=== PATIENT | male | born 1955 | race American Indian/Alaskan Native ===

== ENCOUNTER 2021-06-22 07:14 | Day surgery (SDC) | payer OTHER ==
[2021-06-19 11:47] LABS: Potassium 4.4 mmol/L (3.5-5.1)
[2021-06-19 11:51] LABS: Basophils % 0.5 % (0-1.3); Hematocrit 39.1 % (39.6-49.0); Lymphocytes % 34.9 % (15.3-44.8); MPV 9.3 fL (7.6-11.3); RBC Red Blood Cell Count 4.59 M/uL (4.33-5.43)
[2021-06-22] MEDS ORDERED: Ringers Lactate 1,000 ML IV ONE (07:55)
[2021-06-22] MEDS ORDERED: CEFAZOLIN 1GM (PREMIX IV) 1 GM/50 ML BAG IV ONE (08:00)
[2021-06-22] MEDS ORDERED: LIDOCAINE 1% MPF 5 ML VIAL ONE (08:46)
[2021-06-22] MEDS ORDERED: BUPIVACAINE 0.5% PF 10 ML VIAL ONE (08:46)
[2021-06-22] MEDS ORDERED: ONDANSETRON 4 MG/2 ML VIAL ONE (08:46)
[2021-06-22] MEDS ORDERED: NS 0.9% VIAL 0 ML ONE (08:46)
[2021-06-22] MEDS ORDERED: FENTANYL CITR 250 MCG/5 ML ONE (08:46)
[2021-06-22] MEDS ORDERED: MIDAZOLAM HCL 2 MG/2 ML INJ ONE (08:46)
[2021-06-22] MEDS ORDERED: propofoL 200 MG/20 ML VIAL IV ONE (08:46)
[2021-06-22] MEDS ORDERED: dexAMETHasone 10 MG/ML VIAL ONE (08:46)
[2021-06-22] MEDS ORDERED: ROCURONIUM 50 MG/5 ML VIAL IV ONE (08:47)
[2021-06-22] MEDS ORDERED: LIDOCAINE JELLY 2%- 5 ML TUBE ONE (09:07)
--- NOTE | 2021-06-22 09:16 | P.BOP ---
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
[2021-06-22] MEDS ORDERED: DIPHENHYDRAMINE 50 MG/ML VIAL ONE (09:22)
[2021-06-22] MEDS ORDERED: KETOROLAC 30 MG/ML INJ ONE (09:23)
[2021-06-22] MEDS ORDERED: CEFAZOLIN SODIUM 1 GM/VIAL ONE (09:24)
[2021-06-22] MEDS ORDERED: GLYCOPYRROLATE 0.2 MG/ML SYR ONE (09:34)
[2021-06-22] MEDS ORDERED: NEOSTIGMINE 1 MG/ML -5 ML ONE (09:37)
--- NOTE | 2021-06-22 09:50 | OP ---
Date of Procedure: 06/22/2021 Surgeon: Ze De Paz MD Facing Cutting Machine Operator: Avani Rondon. Preoperative Diagnosis: Incisional tender umbilical hernia. Postoperative Diagnosis: Incisional tender umbilical hernia. Procedure: Open repair of incisional tender umbilical hernia. Anesthesia: General plus local. Estimated Blood Loss: Less than 10 mL. Indication: This is the case of a 66-year-old patient, who comes to us with incisional umbilical her antonella. The patient has history of bowel resection in the past. Benefits, alternatives, and risks of r epair were fully explained, which include, but not limited to infection, bleeding, damage to adjacent structures, anesthesia complication, recurrence, NE and even . He also understands this may no t relieve any symptoms. He might need more than one surgical intervention. He understood, signed a consent. He also understands that we discussed a way how to diminish the chance of recurrence in the future. Procedure In Detail: The patient was brought to the operating room, placed in supine position. Anes thesia was done without complication. A time-out was called. Abdomen was prepped and draped in usua l sterile fashion. An incision was made over the previous incision in the inferior part and incision was carried down to fascia. We noticed and identified the umbilical sac, carefully opened the umbil ical sac, retracted some incarcerated omentum and placed in that area. Adhesions were removed from t hat area and the hernia sac was removed and then we cleaned the fascial edges and proceeded to close the defect. Before that, I put my finger through the umbilical area. The rest of the incision seeme d to be holding together, so that we proceeded to close this part of the incision with #1 Prolene in [id number] fashion multiple times. Area was irrigated. Subcutaneous tissue was closed with 3-0 chromic and skin with 3-0 chromic and Steri-Strips on top. Sponge count and instrument counts corre ct. The patient tolerated the procedure well. The patient was sent to recovery in stable condition. PERFECTO/ANGUS Voice ID: [id number] Report ID: [id number]
--- NOTE | 2021-06-22 09:50 | DS ---
Diagnosis: Incisional tender umbilical hernia. Procedure: Open repair of incisional tender umbilical hernia. Disposition: Home. Activity: As tolerated. No heavy lifting. Plan: Follow up in my office in 1 week. Call for appointment at [phone]. Medications: Include Tylenol No.3 q.4 hours p.r.n. pain, Bactrim DS p.o. b.i.d. Leave dressings int act. HM/MODL Voice ID: [id number] Report ID: [id number]
[2021-06-22] MEDS ORDERED: CODEINE 30MG/APAP 300MG TAB ONE (10:48)
[2021-06-22 11:10] VITALS: BP 126/64; TEMP 96.9; O2SAT 97
== END 2021-06-22 11:00 | disposition home or self-care (01) ==
LOC: OR 07:14
PROVIDERS: ATTEND Surgery
PROC: 0WQF0ZZ Repair Abdominal Wall, Open Approach (ICD-10-PCS; principal; 2021-06-22 08:30)
DX: K42.9 Umbilical hernia without obstruction or gangrene (principal); Z20.822 Contact with and (suspected) exposure to COVID-19
CPT/HCPCS: 85025; 80048; 36415; 88302; 49585; U0003; J2704; J1200; J2250; J3010; J2710; J7120; J0690 ×2; J2405; J1100

== ENCOUNTER 2021-06-24 10:37 | Emergency (ER) | payer OTHER ==
[2021-06-24 12:07] LABS: Urine Blood Negative (Negative); Urine Glucose Trace (Negative); Urine Protein Negative (Negative); Urine Specific Gravity 1.015 (1.005-1.030); Urine pH 5.5 (5.0-7.0)
[2021-06-24 12:09] LABS: Urine Appearance CLEAR (Clear); Urine Bilirubin NEGATIVE (Negative); Urine Blood NEGATIVE (Negative); Urine Color ORANGE (Yellow); Urine Glucose NEGATIVE (Negative); Urine Protein NEGATIVE (Negative); Urine pH 5.5 (5.0-7.0)
[2021-06-24 12:11] LABS: Urine Microscopic Reflex NO UMIC
--- NOTE | 2021-06-24 13:20 | ER ---
Nurse's Notes [facility] Name: Chuckie Caruso Age: 66 yrs Sex: Male : 1955 Arrival Date: 06/24/2021 Time: 10:41 Bed 20 Private MD: Diagnosis: Urinary retention status post general anesthesia;UTI/ Urinary tract infection, site not specified Presentation: 06/24 10:53 Chief complaint: Patient states: i had a hernia surgery Tuesday and they put barros tw2 catheter in while they were operating. it was out whenever i woke up from the surgery. i called the doctors office and they said it was common. last night the pain is terrible. i dont know if i caught a UTI or what but I am not urinating at all now. the urologist has an answering service. Coronavirus screen: At this time, the client does not indicate any symptoms associated with coronavirus-19. Ebola Screen: Patient denies travel to an Ebola-affected area in the 21 days before illness onset. Initial Sepsis Screen: Does the patient meet any 2 criteria? HR > 90 bpm. No. Patient's initial sepsis screen is negative. Does the patient have a suspected source of infection? No. Patient's initial sepsis screen is negative. Risk Assessment: Do you want to hurt yourself or someone else? Patient reports no desire to harm self or others. Onset of symptoms was June 24, 2021. 10:53 Method Of Arrival: Ambulatory tw2 10:53 Acuity: STEPHAN 3 tw2 10:53 Note pt unable to sit in triage chair, states "its just too uncomfortable to sit. if tw2 you dont mind i will just stand". Triage Assessment: 10:56 General: Appears uncomfortable, Behavior is cooperative, appropriate for age. Pain: tw2 Complains of pain in urinary. : Reports inability to void, pain. 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 - Social history:: Smoking status: Reported history of juuling and/or vaping. Screenin:07 Abuse screen: Denies threats or abuse. Nutritional screening: No deficits noted. tw2 Tuberculosis screening: No symptoms or risk factors identified. Fall Risk None identified. Assessment: 10:57 Reassessment: pt wishing to try and use restroom at this time. pt given urinal. tw2 11:05 Reassessment: Patient and/or family updated on plan of care and expected duration. Pain es2 level reassessed. Patient is alert, oriented x 3, equal unlabored respirations, skin warm/dry/pink. Patient states he had hernia surgery yesterday. urine was a trickle, was worse yesterday and today he has no urine output. He took AZO late last night and early this morning. Now reports feeling pain in lower back. General: Appears distressed, uncomfortable, well developed, well nourished, Behavior is calm, cooperative, appropriate for age, restless. Pain: Complains of pain in back, abdomen and pelvis lower abd, pelvic pain that radiates to lower back. Pain currently is 10 out of 10 on a pain scale. Neuro: Level of Consciousness is awake, alert, obeys commands, Oriented to person, place, time, situation, Appropriate for age Speech is normal, Facial symmetry appears normal. Cardiovascular: Capillary refill < 3 seconds Patient's skin is warm and dry. Respiratory: Airway is patent Respiratory effort is even, unlabored, Respiratory pattern is regular, symmetrical. GI: No signs and/or symptoms were reported involving the gastrointestinal system. : Reports inability to void, pain. EENT: No signs and/or symptoms were reported regarding the EENT system. Derm: No signs and/or symptoms reported regarding the dermatologic system. 12:00 Reassessment: Bladder scan read 760. Barros bag drained 1400 after insertion. es2 13:15 Reassessment: approximately 600ml in barros bag when d/c'd. es2 Vital Signs: 10:53 BP 158 / 95; Pulse 90; Resp 17; Temp 98.5(TE); Pulse Ox 98% on R/A; Weight 88.9 kg (R); tw2 Height 5 ft. 7 in. (170.18 cm); Pain 10/10; 11:11 BP 167 / 89; Pulse 89; Resp 20; Pulse Ox 98% on R/A; es2 12:20 BP 141 / 83; Pulse 85; Resp 20; Pulse Ox 95% on R/A; es2 10:53 Body Mass Index 30.70 (88.90 kg, 170.18 cm) tw2 ED Course: 10:41 Patient arrived in ED. jm9 10:55 Triage completed. tw2 10:56 Arm band placed on. tw2 10:57 Bed in low position. Call light in reach. tw2 10:58 China Pandey, RN is Primary Nurse. es2 10:59 Roger Killian MD is Attending Physician. kdr 11:11 No provider procedures requiring assistance completed. es2 12:00 Barros cath inserted, using sterile technique, 16 Fr., by ED staff, balloon inflated, to es2 gravity drainage, urine specimen collected. 13:15 Barros cath removed intact, balloon deflated. Patient did not have IV access during this es2 emergency room visit. Administered Medications: 13:19 Drug: Cipro (ciprofloxacin) 500 mg Route: PO; es2 13:19 Follow up: Response: No adverse reaction es2 Outcome: 13:19 Discharge ordered by . kdr 13:29 Patient left the ED. es2 Signatures: Roger Killian MD MD kdr Soha Marshall RN RN 2 China Pandey, MAHNAZ RN 2 Chastity Palma 9 Corrections: (The following items were deleted from the chart) 10:56 10:55 Social history: Smoking status: Patient denies any tobacco usage or history of. tw2 tw2
--- NOTE | 2021-06-24 13:20 | EDPHYS ---
Physician Documentation [facility] Name: Chuckie Caruso Age: 66 yrs Sex: Male : 1955 Arrival Date: 06/24/2021 Time: 10:41 Bed 20 Private MD: ED Physician Roger Killian HPI: 06/24 13:22 This 66 yrs old Other Male presents to ER via Ambulatory with complaints of Urinary kdr Problem. 13:22 The patient presents with urinary symptoms, retention. Onset: The symptoms/episode kdr began/occurred last night. Modifying factors: The symptoms are alleviated by nothing, the symptoms are aggravated by movement, pressure. Associated signs and symptoms: The patient has no apparent associated signs or symptoms. Severity of symptoms: At their worst the symptoms were incapacitating. The patient has not experienced similar symptoms in the past. The patient has been recently seen by a physician: Patient had an umbilical hernia repair on Tuesday. Starting last evening, he began to have difficulty urinating and was not been able to urinate since then.. 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 - Social history:: Smoking status: Reported history of juuling and/or vaping. ROS: 13:22 Constitutional: Negative for fever, chills, and weight loss, Eyes: Negative for injury, kdr pain, redness, and discharge, Neck: Negative for injury, pain, and swelling, Cardiovascular: Negative for chest pain, palpitations, and edema, Respiratory: Negative for shortness of breath, cough, wheezing, and pleuritic chest pain, Back: Negative for injury and pain, MS/Extremity: Negative for injury and deformity, Skin: Negative for injury, rash, and discoloration, Neuro: Negative for headache, weakness, numbness, tingling, and seizure activity. Psych: Negative for depression, anxiety, suicide ideation, homicidal ideation, and hallucinations, Allergy/Immunology: Negative for hives, rash, and allergies, Endocrine: Negative for neck swelling, polydipsia, polyuria, polyphagia, and marked weight changes. 13:22 Abdomen/GI: Positive for abdominal pain, Negative for nausea, vomiting, and diarrhea. 13:22 : Positive for urinary symptoms, Urinary retention. Exam: 13:22 Constitutional: This is a well developed, well nourished patient who is awake, alert, kdr and in no acute distress. Head/Face: Normocephalic, atraumatic. Eyes: Pupils equal round and reactive to light, extra-ocular motions intact. Lids and lashes normal. Conjunctiva and sclera are non-icteric and not injected. Cornea within normal limits. Periorbital areas with no swelling, redness, or edema. Neck: Trachea midline, no thyromegaly or masses palpated, and no cervical lymphadenopathy. Supple, full range of motion without nuchal rigidity, or vertebral point tenderness. No Meningismus. Chest/axilla: Normal chest wall appearance and motion. Nontender with no deformity. No lesions are appreciated. Cardiovascular: Regular rate and rhythm with a normal S1 and S2. No gallops, murmurs, or rubs. Normal PMI, no JVD. No pulse deficits. Respiratory: Lungs have equal breath sounds bilaterally, clear to auscultation and percussion. No rales, rhonchi or wheezes noted. No increased work of breathing, no retractions or nasal flaring. Abdomen/GI: Soft, non-tender, with normal bowel sounds. No distension or tympany. No guarding or rebound. No evidence of tenderness throughout. Back: No spinal tenderness. No costovertebral tenderness. Full range of motion. Skin: Warm, dry with normal turgor. Normal color with no rashes, no lesions, and no evidence of cellulitis. MS/ Extremity: Pulses equal, no cyanosis. Neurovascular intact. Full, normal range of motion. Neuro: Awake and alert, GCS 15, oriented to person, place, time, and situation. Cranial nerves II-XII grossly intact. Motor strength 5/5 in all extremities. Sensory grossly intact. Cerebellar exam normal. Normal gait. Psych: Awake, alert, with orientation to person, place and time. Behavior, mood, and affect are within normal limits. Vital Signs: 10:53 BP 158 / 95; Pulse 90; Resp 17; Temp 98.5(TE); Pulse Ox 98% on R/A; Weight 88.9 kg (R); tw2 Height 5 ft. 7 in. (170.18 cm); Pain 10/10; 11:11 BP 167 / 89; Pulse 89; Resp 20; Pulse Ox 98% on R/A; es2 12:20 BP 141 / 83; Pulse 85; Resp 20; Pulse Ox 95% on R/A; es2 10:53 Body Mass Index 30.70 (88.90 kg, 170.18 cm) tw2 MDM: 13:19 Patient medically screened. kdr 13:20 Data reviewed: vital signs, nurses notes. Counseling: I had a detailed discussion with kdr the patient and/or guardian regarding: the historical points, exam findings, and any diagnostic results supporting the discharge/admit diagnosis, lab results, the need for outpatient follow up. Special discussion: I discussed with the patient/guardian in detail that at this point there is no indication for admission to the hospital. It is understood, however, that if the symptoms persist or worsen the patient needs to return immediately for re-evaluation. ED course: Discussed with patient the option to either leave the Orellana in and return in a few days to have it taken out or take the Orellana out at this time and see if he is able to void later today. Patient opted to attempt to resume normal voiding and to take the Orellana out at this time. He was happy with the care provided and the plan for discharge and follow-up. He indicated that he would come back should he not be able to void.. 13:22 ED course: Patient had significant relief and complete relief with insertion of the kdr Orellana. The initially drained approximately 1400 cc. At the time of my reexamination, he had an additional 500 cc out. The dip urine showed possible infection.. 06/24 11:24 Order name: Urinalysis; Complete Time: 12:59 kdr 06/24 12:07 Order name: Urine Dipstick-Ancillary; Complete Time: 12:59 EDWA 06/24 11:30 Order name: Bladder Scanner; Complete Time: 11:52 kdr 06/24 11:30 Order name: Orellana; Complete Time: 11:52 [facility] Administered Medications: 13:19 Drug: Cipro (ciprofloxacin) 500 mg Route: PO; es2 13:19 Follow up: Response: No adverse reaction es2 Disposition Summary: 06/24/21 13:19 Discharge Ordered Location: Home kdr Problem: new kdr Symptoms: have improved kdr Condition: Stable kdr Diagnosis - Urinary retention status post general anesthesia kdr - UTI/ Urinary tract infection, site not specified kdr Followup: kdr - With: Private Physician - When: 2 - 3 days - Reason: If symptoms return, Further diagnostic work-up, Recheck today's complaints, Continuance of care, Re-evaluation by your physician Discharge Instructions: - Discharge Summary Sheet kdr - Urinary Tract Infection, Adult, [id number] kdr - Acute Urinary Retention, Male, [id number] kdr Forms: - Medication Reconciliation Form kdr - Thank You Letter kdr - Antibiotic Education kdr Prescriptions: - Cipro 500 mg Oral Tablet - take 1 tablet by ORAL route every 12 hours for 7 days; 14 tablet; Refills: 0, kdr Product Selection Permitted Signatures: Dispatcher [employer] EDMS Roger Killian MD MD kdr Soha Marshall RN RN tw2 China Pandey RN RN es2 Corrections: (The following items were deleted from the chart) 10:56 10:55 Social history: Smoking status: Patient denies any tobacco usage or history of. tw2 tw2
[2021-06-24 13:34] VITALS: TEMP 98.5
[2021-06-24 13:36] VITALS: BP 141/83; O2SAT 95
[2021-06-24] MEDS ORDERED: CIPROFLOXACIN HCL 500 MG TAB ONE (13:42)
== END 2021-06-24 13:29 | disposition home or self-care (01) ==
LOC: ER 10:37
DX: N39.0 Urinary tract infection, site not specified (principal); N40.0 Benign prostatic hyperplasia without lower urinary tract symptoms
CPT/HCPCS: 51702; 81003; 99284

== ENCOUNTER 2021-06-25 07:14 | Emergency (ER) | payer OTHER ==
[2021-06-25 07:59] LABS: Urine Blood Negative (Negative); Urine Glucose Trace (Negative); Urine Protein Negative (Negative); Urine Specific Gravity 1.025 (1.005-1.030); Urine pH 5.5 (5.0-7.0)
--- NOTE | 2021-06-25 08:40 | ER ---
Nurse's Notes [facility] Name: Chuckie Caruso Age: 66 yrs Sex: Male : 1955 Arrival Date: 06/25/2021 Time: 07:16 Bed 13 Private MD: Rufus Izaguirre V Diagnosis: Retention of urine, unspecified;UTI/ Urinary tract infection, site not specified Presentation: 06/25 07:23 Chief complaint: Patient states: Had Hernia surgery Tuesday. Was seen here for urinary ch5 retention yesterday. Barros placed and drained yesterday but barros DCed. Coronavirus screen: Vaccine status: Patient reports receiving the 2nd dose of the covid vaccine. Ebola Screen: Patient negative for fever greater than or equal to 101.5 degrees Fahrenheit, and additional compatible Ebola Virus Disease symptoms Patient denies exposure to infectious person. Patient denies travel to an Ebola-affected area in the 21 days before illness onset. Initial Sepsis Screen: Does the patient meet any 2 criteria? No. Patient's initial sepsis screen is negative. Does the patient have a suspected source of infection? No. Patient's initial sepsis screen is negative. Risk Assessment: Do you want to hurt yourself or someone else? Patient reports no desire to harm self or others. 07:23 Method Of Arrival: Ambulatory 5 07:23 Acuity: STEPHAN 2 ch5 - Immunization history:: Client reports receiving the 2nd dose of the Covid vaccine. - Social history:: Smoking status: Patient denies any tobacco usage or history of. - Family history:: not pertinent. - Hospitalizations: : No recent hospitalization is reported. Screenin:26 Abuse screen: Denies threats or abuse. Denies injuries from another. Nutritional ch5 screening: No deficits noted. Tuberculosis screening: No symptoms or risk factors identified. Fall Risk None identified. Assessment: 07:49 Pain: Complains of pain in pelvis Pain does not radiate. Pain currently is 8 out of 10 aj2 on a pain scale. Quality of pain is described as pressure, Pain began 1 day ago. Is continuous, Alleviated by Barros Catheter Aggravated by drinking. Vital Signs: 07:23 BP 144 / 86; Pulse 84; Resp 18; Temp 98.9; Pulse Ox 99% ; Weight 88.9 kg; Height 5 ft. ch5 7 in. (170.18 cm); Pain 7/10; 07:49 BP 144 / 86; Pulse 84; Resp 18; Temp 98.9; Pulse Ox 100% ; aj2 07:23 Body Mass Index 30.70 (88.90 kg, 170.18 cm) 5 ED Course: 07:16 Patient arrived in ED. mr 07:17 Rufus Izaguirre MD is Private Physician. mr 07:23 David Garcia MD is Attending Physician. rn 07:26 Triage completed. ch5 07:26 Patient has correct armband on for positive identification. Bed in low position. Call [facility] light in reach. 07:26 No provider procedures requiring assistance completed. ch5 07:27 Skyler Munoz is Primary Nurse. aj2 07:49 No apparent distress. Resting quietly. aj2 07:51 Urine collected: Barros catheter specimen, clear. kj1 07:52 Urine Culture Sent. kj1 07:52 Urine Microscopic Only Sent. kj1 07:52 Urine Culture Sent. kj1 07:52 Urine Microscopic Only Sent. kj1 07:52 Urine collected: Barros catheter specimen, Amount Returned: 1100mL. kj1 Administered Medications: 09:03 Drug: Rocephin (cefTRIAXone) 1 grams Route: IM; Site: left deltoid; aj2 Outcome: 08:39 Discharge ordered by . rn 09:44 Discharged to home ambulatory. aj2 09:44 Condition: stable 09:44 Discharge instructions given to patient, Instructed on discharge instructions, follow up and referral plans. Demonstrated understanding of instructions, follow-up care, medications. 09:48 Patient left the ED. aj2 Signatures: Yashira Oliva mr David Garcia MD MD rn Jackson, Kandis kj1 Skyler Munoz aj2 Caesar Calloway RN RN 5 Corrections: (The following items were deleted from the chart) 07: 07:26 PMHx: enlarged prostrate; 5 5 07:26 07:26 PSHx: hernia; 5 5
--- NOTE | 2021-06-25 08:40 | EDPHYS ---
Physician Documentation [facility] Name: Chuckie Caruso Age: 66 yrs Sex: Male : 1955 Arrival Date: 06/25/2021 Time: 07:16 Bed 13 Private MD: Rufus Izaguirre V ED Physician David Garcia HPI: 06/25 07:53 This 66 yrs old Other Male presents to ER via Ambulatory with complaints of Urinary rn Problem. 07:53 The patient presents with urinary symptoms, retention. Onset: The symptoms/episode rn began/occurred yesterday. Modifying factors: The symptoms are alleviated by nothing, the symptoms are aggravated by pressure. Associated signs and symptoms: Pertinent negatives: abdominal pain, fever, nausea, vomiting. Severity of symptoms: At their worst the symptoms were moderate, in the emergency department the symptoms are unchanged. The patient has experienced similar episodes in the past. The patient has been recently seen by a physician: The patient has been recently seen at the [facility] Emergency Department. Patient reports umbilical hernia surgery 1 week ago. Seen yesterday in ER for urinary retention which he has had multiple times in the past. Denies fever. Is on ciprofloxacin. Reports Orellana catheter placed and felt better Orellana catheter was removed prior to discharge and was able to urinate at home until late last night. Now just mild dribbling and unable to empty. Patient also with enlarged prostate and takes medication for that chronically.. - Immunization history:: Client reports receiving the 2nd dose of the Covid vaccine. - Social history:: Smoking status: Patient denies any tobacco usage or history of. - Family history:: not pertinent. - Hospitalizations: : No recent hospitalization is reported. ROS: 07:53 Constitutional: Negative for fever, chills, and weight loss, Eyes: Negative for injury, rn pain, redness, and discharge, Neck: Negative for injury, pain, and swelling, Cardiovascular: Negative for chest pain, palpitations, and edema, Respiratory: Negative for shortness of breath, cough, wheezing, and pleuritic chest pain, Abdomen/GI: Negative for abdominal pain, nausea, vomiting, diarrhea, and constipation, Back: Negative for injury and pain, : Negative for injury, bleeding, discharge, and swelling, positive for urinary retention MS/Extremity: Negative for injury and deformity, Skin: Negative for injury, rash, and discoloration, Neuro: Negative for headache, weakness, numbness, tingling, and seizure. Exam: 07:53 Constitutional: This is a well developed, well nourished patient who is awake, alert, rn and in no acute distress. Standing in room, pacing, appears a little uncomfortable. Cardiovascular: Regular rate and rhythm. No pulse deficits. Respiratory: No increased work of breathing, no retractions or nasal flaring. Abdomen/GI: Soft, non-tender, surgical wound clean dry and intact without any surrounding erythema or tenderness Back: No costovertebral tenderness. Full range of motion. Skin: Warm, dry Neuro: Awake and alert, GCS 15, ambulatory Vital Signs: 07:23 BP 144 / 86; Pulse 84; Resp 18; Temp 98.9; Pulse Ox 99% ; Weight 88.9 kg; Height 5 ft. ch5 7 in. (170.18 cm); Pain 7/10; 07:49 BP 144 / 86; Pulse 84; Resp 18; Temp 98.9; Pulse Ox 100% ; aj2 07:23 Body Mass Index 30.70 (88.90 kg, 170.18 cm) ch5 MDM: 07:23 Patient medically screened. rn 08:38 Differential diagnosis: UTI, urinary retention, prostatitis, urethritis. Data reviewed: rn vital signs, nurses notes. 08:38 Counseling: I had a detailed discussion with the patient and/or guardian regarding: the rn historical points, exam findings, and any diagnostic results supporting the discharge/admit diagnosis, lab results, the need for outpatient follow up, to return to the emergency department if symptoms worsen or persist or if there are any questions or concerns that arise at home. Response to treatment: the patient's symptoms have markedly improved after treatment, and as a result, I will discharge patient. Special discussion: I discussed with the patient/guardian in detail that at this point there is no indication for admission to the hospital. It is understood, however, that if the symptoms persist or worsen the patient needs to return immediately for re-evaluation. Based on the history and exam findings, there is no indication for further emergent testing or inpatient evaluation. I discussed with the patient/guardian the need to see the urologist for further evaluation of the symptoms. ED course: Patient with improvement after Orellana catheter placed. Appears much more comfortable. Has follow-up appointment with Dr. De Paz on Tuesday but anticipate will have to leave the Orellana in longer than that so recommend follow-up with his urologist. He has already been in contact with her and has plans to follow-up. Rocephin given here for nitrate positive urine but patient already on ciprofloxacin and recommend continuation. Return precautions given and understood.. 06/25 07:41 Order name: Urine Culture rn 06/25 07:41 Order name: Urine Microscopic Only rn 06/25 07:42 Order name: Urine Culture EDND 06/25 07:42 Order name: Urine Microscopic Only [facility] 06/25 07:59 Order name: Urine Dipstick-Ancillary [facility] 06/25 07:41 Order name: Orellana; Complete Time: 07:51 rn 06/25 07:41 Order name: Urine Dipstick-Ancillary (obtain specimen); Complete Time: 09:02 rn Administered Medications: 09:03 Drug: Rocephin (cefTRIAXone) 1 grams Route: IM; Site: left deltoid; aj2 Disposition Summary: 06/25/21 08:39 Discharge Ordered Location: Home rn Problem: an acute exacerbation rn Symptoms: have improved rn Condition: Stable rn Diagnosis - Retention of urine, unspecified rn - UTI/ Urinary tract infection, site not specified rn Followup: rn - With: Private Physician - When: As needed - Reason: Recheck today's complaints, Re-evaluation by your physician Discharge Instructions: - Discharge Summary Sheet rn - Indwelling Urinary Catheter Care, Adult rn - Acute Urinary Retention, Male rn - Urinary Tract Infection, Adult rn Forms: - Medication Reconciliation Form rn - Thank You Letter rn - Antibiotic burning 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
[2021-06-25 08:41] LABS: Urine Bacteria <20 /HPF (NONE SEEN); Urine RBC <5 /HPF (NONE SEEN)
[2021-06-25] MEDS ORDERED: CEFTRIAXONE 1000 MG/VIAL ONE (09:11)
[2021-06-25 09:52] VITALS: BP 144/86; TEMP 98.9
[2021-06-25 09:54] VITALS: O2SAT 100
== END 2021-06-25 09:48 | disposition home or self-care (01) ==
LOC: ER 07:14
DX: N39.0 Urinary tract infection, site not specified (principal); N40.0 Benign prostatic hyperplasia without lower urinary tract symptoms; Z98.890 Other specified postprocedural states
CPT/HCPCS: 81003; 81015; 87086; 87088; 96372; 99283